=== PATIENT | male | born 1985 | race Caucasian/White ===

== ENCOUNTER 2020-05-29 12:42 | Emergency (ER) | payer OTHER ==
[2020-05-29] MEDS ORDERED: CEPHALEXIN500 MG PO (13:14)
== END 2020-05-29 13:22 | disposition home or self-care (01) ==
LOC: FER 12:42
DX: S01.81XA Laceration without foreign body of other part of head, initial encounter (principal); I10 Essential (primary) hypertension; F10.20 Alcohol dependence, uncomplicated; Z86.19 Personal history of other infectious and parasitic diseases; W19.XXXA Unspecified fall, initial encounter; Y92.009 Unspecified place in unspecified non-institutional (private) residence as the place of occurrence of the external cause
CPT/HCPCS: 99283